=== PATIENT | male | born 1970 | race Caucasian/White ===

== ENCOUNTER 2025-04-04 10:06 | Emergency (ER) | payer MEDICAID, SELFPAY ==
--- NOTE | 2025-04-04 10:08 | EKG_ITS ---
[facility] Test Date: 2025-04-04 Pat Name: MANI PARKS Department: Room: - Gender: Male P 3 Armament/Ordnance Ima Technician: : 1970 Requested By: ED Temporary Provider Order Number: [id number] Reading MD: ED Temporary Provider Measurements Intervals Bagley Rate: 96 P: 26 CO: 131 QRS: -42 QRSD: 125 T: 50 QT: 360 QTc: 457 Interpretive Statements SINUS RHYTHM LEFT AXIS DEVIATION [QRS AXIS < -30] MODERATE INTRAVENTRICULAR CONDUCTION DELAY [110+ ms QRS DURATION] Compared to ECG 04/13/2022 10:28:24 Intraventricular conduction delay now present Incomplete right bundle-branch block no longer present /store/S0/[id number].pdf
[2025-04-04 10:13] VITALS: PULSE 102; RESP 18; O2SAT 99
[2025-04-04 10:14] VITALS: BP 116/69; PULSE 95; RESP 18; TEMP 36.7; O2SAT 99
--- NOTE | 2025-04-04 10:22 | XR_ITS ---
Examination: CT brain head without contrast. 2-D sagittal coronal reconstructions Date and time of exam:April 04, 2025 1033 hours INDICATIONS: Syncopal episode, patient fell today with into the back of the head, head pain CTDI: vol (mGy):54 DLP: (mGycm):1128 Technique: Multiple CT axial sections of the brain have been obtained, 5 mm slice thickness. Contrast has not been administered. 2-D sagittal, coronal reconstructions have been obtained Low dose protocols were performed. One or more of the following dose reduction techniques were used; automated exposure control, adjustment of the mA and/or KV according to patient size, use of iterative reconstruction technique. Findings: No significant ventricular enlargement. Intra-axial or extra-axial hemorrhage density is not seen. No mass effect or midline shift Basal cisterns are not remarkable. Fourth ventricle is midline. Cranial vault intact. Impression: Negative for acute hemorrhage, mass effect or midline shift
--- NOTE | 2025-04-04 10:22 | XR_ITS ---
Examination: CT thoracic spine, without contrast. 2-D sagittal reconstructions. 2-D coronal reconstructions. 3-D reconstructions. Date and time of exam:April 04, 2025 1033 hours INDICATIONS: Syncopal episode today, patient fell with injury to the back, mid back pain CTDI: vol (mGy):32.4 DLP: (mGycm):1275 Technique: Multiple 1.25 mm axial sections of the thoracic spine without intravenous contrast have been obtained. 2-D sagittal and coronal reconstructions have been obtained. 3-D reconstructions have been obtained. Low dose protocols were performed. One or more of the following dose reduction techniques were used; automated exposure control, adjustment of the mA and/or KV according to patient size, use of iterative reconstruction technique. Findings: Acute fractures T5,T6 vertebral bodies, mild depression superior endplates, reduction in height both levels less than 10% No retropulsion of these vertebral bodies Pedicles and laminae appear intact 10 mm sclerotic focus L1 vertebral body IMPRESSION: Mild acute fractures T5, T6 vertebral bodies with satisfactory alignment 10 mm sclerotic focus L1 vertebral body, consider elective body bone scan follow-up
--- NOTE | 2025-04-04 10:23 | XR_ITS ---
Examination: AP chest single view Technique one AP portable upright chest single view Date and time: 12/05/2024 1120 hours INDICATIONS: Syncopal episode today patient fell with injury of the chest FINDINGS: Normal heart size. No pneumothorax. No pulmonary contusion. Moderate osteopenia. Clavicles ribs appear intact IMPRESSION: No pneumothorax pulmonary contusion or hemothorax
--- NOTE | 2025-04-04 10:25 | XR_ITS ---
Shoulder bilateral, 6 views Technique: Shoulder AP internal rotation, AP external rotation, Y view each shoulder total 6 views Exam date and time :April 04, 2025 1116 hours INDICATIONS: Patient fell today with injury to both shoulders, bilateral shoulder pain. FINDINGS: Old deformity distal right clavicle No acute right or left shoulder fracture or dislocation No AC joint separation IMPRESSION: No acute shoulder fractures or dislocations
[2025-04-04 10:27] VITALS: PULSE 91
--- NOTE | 2025-04-04 10:39 | PD.EDSYNC ---
ED Syncope RME/HPI General Chief Complaint: Syncope / Near Syncope Stated Complaint: SYNCOPE Time Seen by Provider: 04/04/25 10:12 Arrival date/time: 04/04/25 10:06 Limitations: no limitations RME / HPI RME / HPI narrative: 54 year old male with history of fibromyalgia, hypertension, and diabetes who presents to the ED BIBA from home for evaluation following a syncopal episode earlier this morning. Per medics report, the patient was found on the floor of his restroom, diaphoretic and pale. Initial vital signs noted hypotension b/p 74/46 and a BS 180. He was started on IV Lactated Ringer?s en route and received approximately 500cc. While in the ED, the patient reports pain described as a tight sensation between his shoulder blades. He denies chest pain, shortness of breath, or other injuries. His daughter, who is at the bedside, did not witness the syncopal event but found the patient on the floor snoring loudly with his eyes open and unresponsive to verbal stimuli at that time. Related Data Home Medications ?Medication ?Instructions ?Recorded ?Confirmed famotidine 40 mg tablet 40 mg PO HS 11/27/20 12/20/20 fluoxetine 20 mg capsule 20 mg PO DAILY 11/27/20 12/20/20 hydrocodone 5 mg-acetaminophen 325 1 tab PO BID PRN Pain 11/27/20 12/20/20 mg tablet Held on 12/21/20. Instructions: Resume on 12/26/20. tizanidine 6 mg capsule 6 mg PO HS 11/27/20 12/20/20 hydrochlorothiazide 25 mg tablet 25 mg PO QDAY 12/20/20 12/20/20 lisinopril 40 mg tablet 40 mg PO QDAY 12/20/20 12/20/20 Previous Rx's ?Medication ?Instructions ?Recorded docusate sodium 100 mg capsule 100 mg PO BID #60 caps 12/21/20 (Colace) hydrocodone 10 mg-acetaminophen 1 tab PO Q6H PRN pain (scale score 12/21/20 325 mg tablet 7-10) #20 tabs ibuprofen 600 mg tablet 600 mg PO Q8H PRN pain (scale 12/21/20 score 4-6) #20 tabs hydrocodone 5 mg-acetaminophen 325 1 tab PO Q6H PRN pain #20 tabs 04/04/25 mg tablet Allergies Allergy/AdvReac Type Severity Reaction Status Date / Time crab Allergy Severe Anaphylaxis Verified 12/21/20 15:43 Iodinated Contrast Media Allergy Severe Anaphylaxis Verified 12/21/20 15:43 (Iodinated Contrast- Oral and IV Dye) iodine Allergy Severe Anaphylaxis Verified 12/21/20 15:43 shrimp Allergy Severe Anaphylaxis Verified 12/21/20 15:43 Review of Systems Review of Systems Systems Reviewed: All systems reviewed, normal except as documented Past Medical History Past Medical History NEUROLOGIC: Positive Meningitis (10-15- YRS AGO) CARDIAC: Positive Cardiac Disorders, Hypercholesterolemia (NO MEDS) and Hypertension MUSCULOSKELETAL: Positive Musculoskeletal Disorders, Arthritis, Carpal Tunnel Syndrome (LEFT) and Fibromyalgia PSYCHO/SOCIAL: Positive Depression (MEDS) OTHER HISTORY: Positive Chicken Pox Family History FAMILY HISTORY: Positive Family Cardiac Disorders (PARENTS,SISTER, BROTHER) Social History SMOKING STATUS: Never smoker ED Exam General Limitations: Present no limitations General appearance: Present alert and other (Patient grimacing during exam) Head Head exam: Present atraumatic, normocephalic, normal inspection and other (No abrasions or edema on scalp ) Eye Eye exam: Present normal appearance, PERRL and EOMI ENT ENT exam: Present normal exam, normal oropharynx and mucous membranes moist Neck Neck exam: Present normal inspection, full ROM and trachea midline Chest Chest inspection: Present symmetric chest wall rise and other (Very mild tenderness to bilateral rib cage ) Respiratory Respiratory exam: Present normal lung sounds bilaterally Cardiovascular Cardiovascular exam: Present regular rate, normal rhythm and normal heart sounds Abdominal Exam Abdominal exam: Present soft and normal bowel sounds Extremities Exam Extremities exam: Present normal inspection and full ROM Back Exam Back exam: Present normal inspection, full ROM and other (No paraspinous or spinous tenderness to palpation) Neurological Exam Neurological exam: Present alert, oriented X3 and CN II-XII intact Psychiatric Psychiatric exam: Present normal affect and normal mood Skin Skin exam: Present warm, dry, intact and normal color Course Quality Measures none Orders Category Date Time 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 04/04/25 10:23 Active Continuous Pulse Oximetry NOW Care 04/04/25 10:23 Completed EKG (ED ONLY) *Do not use* NOW Care 04/04/25 10:08 Completed Insert IV NOW Care 04/04/25 10:23 Completed Referral Physical Therapy Stat Cons 04/04/25 12:[address] head/brain wo con Stat Exams 04/04/25 10:[address] thoracic spine wo con Stat Exams 04/04/25 10:22 Completed EKG (ED Only) Stat Exams 04/04/25 10:08 Draft XR chest 1V portable Stat Exams 04/04/25 10:23 Completed XR shoulder BI min 2V Stat Exams 04/04/25 10:25 Completed CBC Stat Lab 04/04/25 10:35 Completed Comprehensive Metabolic Panel Stat Lab 04/04/25 10:35 Completed Partial Thromboplastin Time Stat Lab 04/04/25 10:35 Completed Prothrombin Time with INR Stat Lab 04/04/25 10:35 Completed Troponin I Stat Lab 04/04/25 10:35 Completed Urinalysis Stat Lab 04/04/25 11:57 Completed Ketorolac Inj [Toradol Inj] Med 04/04/25 10:26 Discontinued 15 mg IVP X1 ONE Morphine Inj Med 04/04/25 10:26 Discontinued 4 mg IVP X1 ONE Ondansetron Inj [Zofran Inj] Med 04/04/25 10:26 Discontinued 4 mg IVP X1 ONE Sodium Chloride 0.9% 1000 ml [Ns] 1,000 ml Med 04/04/25 10:22 Discontinued IV 999 mls/hr Vital Signs Vital signs: Vital Signs Temperature 98.0 F 04/04/25 10:14 Pulse Rate 95 04/04/25 10:14 Respiratory Rate 18 04/04/25 10:14 Blood Pressure 116/69 04/04/25 10:14 Pulse Oximetry (%) 99 04/04/25 10:14 Oxygen Delivery Method Room Air 04/04/25 10:14 Pulse ox is 99% on room air which is adequate. Syncope MDM Narrative MDM Narrative:: IMary am scribing for and in the presence of Dr. Russell. 1230: I spoke with patient and family at bedside. Discussed todays results and plan of care. Patient data External records reviewed:: [facility] previous records (I reviewed ED Visit on 04/13/2022 for chest pain ) and EMS form Clinical information provided by:: patient, EMS and family (daughter adds to hpi) Social determinants that could affect healthcare access:: none Patient has the following chronic illnesses:: fibromyalgia, hypertension, and diabetes How is presenting disease/condition affected by chronic disease/condition?: exacerbated by Evaluation data The following diagnostics were reviewed and interpreted by me:: lab results, radiology exam(s) and EKG tracing(s) Lab and/or radiology exams considered but not ordered:: None Interpretation Summary: Ordering Physician: Moses Russell MD Date of Service: 04/04/25 Procedure(s): CT head/brain wo con Accession Number(s): [id number] cc: Moses Russell MD; Estela Dee ENGINEER CONDUCTOR; Fausto Evans MD~ Examination: CT brain head without contrast. 2-D sagittal coronal reconstructions Date and time of exam:April 04, 2025 1033 hours INDICATIONS: Syncopal episode, patient fell today with into the back of the head, head pain CTDI: vol (mGy):54 DLP: (mGycm):1128 Technique: Multiple CT axial sections of the brain have been obtained, 5 mm slice thickness. Contrast has not been administered. 2-D sagittal, coronal reconstructions have been obtained Low dose protocols were performed. One or more of the following dose reduction techniques were used; automated exposure control, adjustment of the mA and/or KV according to patient size, use of iterative reconstruction technique. Findings: No significant ventricular enlargement. Intra-axial or extra-axial hemorrhage density is not seen. No mass effect or midline shift Basal cisterns are not remarkable. Fourth ventricle is midline. Cranial vault intact. Impression: Negative for acute hemorrhage, mass effect or midline shift Dictated By: Fausto Evans MD Signed By: <Electronically signed by Fausto Evans MD in OV> 04/04/25 1147 Ordering Physician: Moses Russell MD Date of Service: 04/04/25 Procedure(s): CT thoracic spine wo con Accession Number(s): [id number] cc: Moses Russell MD; Estela Dee; Fausto Evans MD~ Examination: CT thoracic spine, without contrast. 2-D sagittal reconstructions. 2-D coronal reconstructions. 3-D reconstructions. Date and time of exam:April 04, 2025 1033 hours INDICATIONS: Syncopal episode today, patient fell with injury to the back, mid back pain CTDI: vol (mGy):32.4 DLP: (mGycm):1275 Technique: Multiple 1.25 mm axial sections of the thoracic spine without intravenous contrast have been obtained. 2-D sagittal and coronal reconstructions have been obtained. 3-D reconstructions have been obtained. Low dose protocols were performed. One or more of the following dose reduction techniques were used; automated exposure control, adjustment of the mA and/or KV according to patient size, use of iterative reconstruction technique. Findings: Acute fractures T5,T6 vertebral bodies, mild depression superior endplates, reduction in height both levels less than 10% No retropulsion of these vertebral bodies Pedicles and laminae appear intact 10 mm sclerotic focus L1 vertebral body IMPRESSION: Mild acute fractures T5, T6 vertebral bodies with satisfactory alignment 10 mm sclerotic focus L1 vertebral body, consider elective body bone scan follow-up Dictated By: Fausto Evans MD Signed By: <Electronically signed by Fausto Evans MD in OV> 04/04/25 1146 Ordering Physician: Moses Russell MD Date of Service: 04/04/25 Procedure(s): XR chest 1V portable Accession Number(s): [id number] cc: Moses Russell MD; Estela Dee; Fausto Evans MD~ Examination: AP chest single view Technique one AP portable upright chest single view Date and time: 12/05/2024 1120 hours INDICATIONS: Syncopal episode today patient fell with injury of the chest FINDINGS: Normal heart size. No pneumothorax. No pulmonary contusion. Moderate osteopenia. Clavicles ribs appear intact IMPRESSION: No pneumothorax pulmonary contusion or hemothorax Dictated By: Fausto Evans MD Signed By: <Electronically signed by Fausto Evans MD in OV> 04/04/25 1142 Ordering Physician: Moses Russell MD Date of Service: 04/04/25 Procedure(s): XR shoulder BI min 2V Accession Number(s): [id number] cc: Moses Russell MD; Estela Dee ENGINEER CONDUCTOR; Fausto Evans MD~ Shoulder bilateral, 6 views Technique: Shoulder AP internal rotation, AP external rotation, Y view each shoulder total 6 views Exam date and time :April 04, 2025 1116 hours INDICATIONS: Patient fell today with injury to both shoulders, bilateral shoulder pain. FINDINGS: Old deformity distal right clavicle No acute right or left shoulder fracture or dislocation No AC joint separation IMPRESSION: No acute shoulder fractures or dislocations Dictated By: Fausto Evans MD Signed By: <Electronically signed by Fausto Evans MD in OV> 04/04/25 1143 Medications / Prescriptions Medications or Prescriptions considered but not ordered:: See above Medication administrations:: Medication Administration History Discontinued Medications Sodium Chloride (Ns) 1,000 mls @ 999 mls/hr IV .Q1H1M ONE Stop: 04/04/25 11:22 Last Infusion: 04/04/25 11:56 Dose: Infused Documented By: Admin: 04/04/25 10:49 Dose: 999 mls/hr Documented By: LOWELL Ketorolac Tromethamine (Ketorolac Inj 30 Mg/Ml Vial) 15 mg IVP X1 ONE Stop: 04/04/25 10:27 Last Admin: 04/04/25 10:50 Dose: 15 mg Documented By: LOWELL Morphine Sulfate (Morphine Sulf Inj 10 Mg/Ml Vial) 4 mg IVP X1 ONE Stop: 04/04/25 10:27 Last Admin: 04/04/25 10:52 Dose: 4 mg Documented By: LOWELL Ondansetron HCl (Ondansetron Inj 2 Mg/Ml Inj 2 Ml) 4 mg IVP X1 ONE; Protocol Stop: 04/04/25 10:27 Last Admin: 04/04/25 10:50 Dose: 4 mg Documented By: LOWELL See above Consultations Consultation(s) initiated? (list below): No Diagnosis Syncope Differential Diagnosis: syncope due to orthostatic hypotension, vasovagal syncope, subarachnoid hemorrhage, dehydration and other ([place]) Most likely diagnosis given after review of the tests above:: Syncope status post fall fibromyalgia T5 and T6 compression fracture Admission Indicated Admission indicated?: not indicated Admission Request Was there a request for admission?: No Disposition Plan Disposition Plan: Discharge Discharge Attestation Discharge Attestation: The patient and all family members were given an opportunity to ask questions and understood the discharge instructions. Discharge instructions specifically effects, indications for sooner follow up or return to the emergency department, and the expected course of current diagnosis. Patient condition: Stable Discharge Plan Plan Patient Disposition: HOME (Self Care) Prescriptions/Referrals Prescriptions/Med Rec: New hydrocodone-acetaminophen 5-325 mg tablet 1 tab PO Q6H MDD 4 PRN (Reason: pain) Qty: 20 0RF No Action hydrochlorothiazide 25 mg Tablet 25 mg PO QDAY lisinopril 40 mg Tablet 40 mg PO QDAY hydrocodone-acetaminophen 10-325 mg tablet 1 tab PO Q6H MDD 4 PRN (Reason: pain (scale score 7-10)) Qty: 20 0RF docusate sodium [Colace] 100 mg capsule 100 mg PO BID Qty: 60 0RF ibuprofen 600 mg tablet 600 mg PO Q8H PRN (Reason: pain (scale score 4-6)) Qty: 20 0RF hydrocodone-acetaminophen 5-325 mg tablet 1 tab PO BID PRN (Reason: Pain) Patient Comments: TAKE 1 TABLET BY MOUTH TWICE A DAY NEEDED FOR CHRONIC PAIN famotidine 40 mg tablet 40 mg PO HS fluoxetine 20 mg capsule 20 mg PO DAILY tizanidine 6 mg capsule 6 mg PO HS Referrals: Estela Dee FNP [Primary Care Provider] - In 1 week Problem List Clinical Impression: Syncope, Status post fall, Fibromyalgia, Compression fracture of T5 vertebra, Compression fracture of T6 vertebra Patient/Caregiver Discharge Instructions Education Materials: ED Fracture, Vertebral Compression, ED Fainting, Uncertain Cause, ED Fibromyalgia Additional Instructions: Follow-up with your primary care doctor in 2 days for referral to see ortho legal recovery specialist. Please also get a referral to link trainer operator and consider a holter monitor, carotid ultrasound, and echocardiogram of your heart. You can return to the emergency department sooner if symptoms worsen or if you notice any new, concerning issues. For pain, take both 1-2 Tylenol 500mg tablets every 6 hours AND 2 Advil Gel 200mg capsules every 6 hours. Print Language: Bhutanese Stand Alone Forms: Stefania Award Info., Patient Portal Info Letter
[2025-04-04] MEDS: SODIUM CHLORIDE 0.9% 1000 ML 1,000 ML 999 ML IV (10:49)
[2025-04-04] MEDS: KETOROLAC INJ 30 MG/ML VIAL 15 MG IVP ×2 (10:50→15:31)
[2025-04-04] MEDS: ONDANSETRON INJ 2 MG/ML INJ 2 ML 4 MG IVP (10:50)
[2025-04-04] MEDS: MORPHINE SULF INJ 10 MG/ML VIAL 4 MG IVP (10:52)
[2025-04-04 11:02] LABS: Basophils # (Auto) 0.1 Thou/mm3 (0.0-0.2); Basophils % (Auto) 0 % (0-2.5); Eosinophils % (Auto) 0 % (0-10); Hematocrit 39.8 % (41.0-53.0); Hemoglobin 14.1 g/dL (13.5-16.0); Immature Granulocytes % (Auto) 1 % (0-0); Immature Granulocytes Auto 0.14 Thou/mm3 (0.00-0.00); Lymphocytes # (Auto) 4.4 Thou/mm3 (1.0-4.8); Lymphocytes % (Auto) 27 % (10-50); Mean Corpuscular HGB Conc 35.4 g/dl (31.0-37.0); Mean Corpuscular Hemoglobin 30.7 pg (25.0-35.0); Mean Corpuscular Volume 87 fL (80-100); Monocytes # (Auto) 0.4 Thou/mm3 (0.0-0.8); Monocytes % (Auto) 2 % (0-12); Neutrophils # (Auto) 11.1 Thou/mm3 (1.8-7.7); Neutrophils % (Auto) 69 % (37-80); Nucleated Red Blood Cell % 0 /100 WBC (0); Platelet Count 186 Thou/mm3 (140-440); RDW Standard Deviation 40.3 fL (35.1-43.9); White Blood Count 16.1 Thou/mm3 (3.8-10.6)
[2025-04-04 11:16] LABS: INR 1.1 (0.9-1.3); Partial Thromboplastin Time 22.1 Seconds (22.0-36.0); Prothrombin Time 11.5 Seconds (9.0-12.2)
[2025-04-04 11:24] LABS: Alanine Aminotransferase 27 U/L (10-49); Albumin, Serum 4.2 gm/dL (3.5-5.0); Albumin/Globulin Ratio 2.3 (1.2-2.2); Alkaline Phosphatase 47 U/L (46-116); Anion Gap 12 (7-16); Aspartate Amino Transferase 23 U/L (0-34); BUN/Creatinine Ratio 12 Ratio (12-20); Bilirubin,Total 0.7 mg/dL (0.3-1.2); Blood Urea Nitrogen 17 mg/dL (9-23); Calcium 9.1 mg/dL (8.3-10.6); Calcium (Corrected) 9.1 mg/dL (8.5-10.1); Chloride 108 mMol/L (98-107); Creatinine (Component) 1.4 mg/dL (0.6-1.3); Globulin 1.8 gm/dL (2.3-3.5); Glucose 169 mg/dL (74-106); Osmolality,Calculated 290 (275-295); Potassium 3.8 mMol/L (3.4-5.1); Sodium 143 mMol/L (136-145); Troponin I < 0.020 ng/mL (0.0-0.045); eGFR 59 See Note
[2025-04-04 12:14] LABS: Collection Type, Urine Clean Catch; Squamous Epithelial Cell,Urine 0 /hpf (0-5)
[2025-04-04 12:20] VITALS: BP 106/66; PULSE 92; RESP 20; TEMP 36.8; O2SAT 98
[2025-04-04 12:33] LABS: Bilirubin,Urine Negative (Negative); Blood,Urine Negative (Negative); Clarity,Urine Clear (Clear/Hazy); Color,Urine Yellow (Lt Yel-Yel); Glucose, Urine Negative (Negative); Ketones,Urine Negative (Negative); Leukocyte Esterase,Urine Negative (Negative); Nitrite,Urine Negative (Negative); Protein,Urine Trace (Neg - Trace); RBC,Urine 3 /hpf (0-3); Specific Gravity,Urine 1.027 (1.001-1.035); Urobilinogen,Urine Negative mg/dL (0.0-1.0); WBC,Urine 2 /hpf (0-5)
[2025-04-04 15:39] VITALS: BP 107/62; PULSE 98; RESP 18; TEMP 36.6; O2SAT 94
== END 2025-04-04 15:40 | disposition home or self-care (01) ==
PROVIDERS: Emergency Provider Family Medicine; PCP Registered Nurse Community Health
DX: R55 Syncope and collapse (principal); M79.7 Fibromyalgia; S22.059A Unspecified fracture of T5-T6 vertebra, initial encounter for closed fracture; W19.XXXA Unspecified fall, initial encounter; I10 Essential (primary) hypertension; E11.9 Type 2 diabetes mellitus without complications; S49.92XA Unspecified injury of left shoulder and upper arm, initial encounter; S49.91XA Unspecified injury of right shoulder and upper arm, initial encounter; R51.9 Headache, unspecified
CPT/HCPCS: 36415; 70450; 71045; 72128; 73030; 80053; 81001; 84484; 85025; 85610; 85730; 93005; 96361; 96374; 96375; 99284; J1885; J2270; J2405; J7030